=== PATIENT | female | born 1945 | race Caucasian/White ===

== ENCOUNTER 2016-12-09 07:35 | Observation (INO) | payer OTHER, BC ==
[~2016-12-09] VITALS: Ht 157.5 cm; Wt 150.6 kg
[~2016-12-09 07:35] MED LIST: AMLODIPINE BESYL5 MG PO; AVAPRO300 MG PO; BABY ASPIRIN81 M1 PO; BENAZEPRIL HCL40 MG; BENAZEPRIL HCL40 MG PO; CARVEDILOL25 MG PO; COUMADIN1 MG PO; DOCUSATE SODIU100 MG PO; DYNAPEN 250 MG250 MG PO; FLUOXETINE HCL20 MG PO; HYDROXYZINE HCL25 MG PO; LORAZEPAM1 MG PO; LOVENOX60 MG/0.6 SC; POLYETHYLENE GL17 GM PO; SANTYL30 GM TP; SIMVASTATIN40 MG PO; SPIRONOLACT/HC1 EACH PO; TRICOR48 MG PO; ULTRAM50 MG PO; VITAMIN D2000 UNI1 PO; WARFARIN SODIUM1 MG PO; WARFARIN SODIUM3 MG PO
[2016-12-09 11:24] LABS: CHLORIDE 103 mEq/L (99-109); POTASSIUM 5.4 mEq/L (3.7-5.4); SODIUM 135 mEq/L (136-147)
[2016-12-09 11:26] LABS: GLUCOSE 292 mg/dL (70-99)
[2016-12-09 11:28] LABS: ANION GAP 17 MEQ/L (2-14); TOTAL BILIRUBIN 0.7 mg/dL (0.0-1.0)
[2016-12-09 11:30] LABS: ALKALINE PHOSPHATASE 60 IU/L (3-129); GFR ESTIMATE (CALCULATED) 43 mL/min/
[2016-12-09 11:31] LABS: UREA NITROGEN (BUN) 22 mg/dL (9-23)
[2016-12-09 11:36] LABS: TROP-I INTERPRETATION NEGATIVE; TROPONIN-I < 0.01 ng/mL (0.0-0.30)
[2016-12-09 11:38] LABS: HEMATOCRIT 37.9 % (36.0-46.0); MCH 29.3 PG (29.0-34.0); MCHC 32.2 G/DL (30.0-36.0); MCV 91.1 FL (83-99); MEAN PLAT.VOLUME 10.9 uM^3 (9.5-12.4); PLATELET COUNT 216 K/uL (156-360); RBC DIS.WIDTH-CV 13.3 % (11.8-14.6); RBC DIS.WIDTH-SD 44.5 % (39-53); RED BLOOD COUNT 4.16 M/uL (3.80-5.20); WHITE BLOOD COUNT 16.9 K/uL (4.1-10.2)
[2016-12-09 11:44] LABS: INTER. NORMALIZED RATIO 3.3
[2016-12-09 11:47] LABS: PTT 34.7 SEC (25-37)
[2016-12-09 11:51] LABS: PROTHROMBIN TIME 37.5 SEC (10.2-12.9)
[2016-12-09] MEDS ORDERED: TRAMADOL HCL50 MG PO (14:45)
[2016-12-09] MEDS ORDERED: CYMBALTA60 MG PO (14:46)
[2016-12-09] MEDS ORDERED: COUMADIN1 MG PO (14:48)
[2016-12-09] MEDS ORDERED: COUMADIN3 MG PO (14:48)
[2016-12-09] MEDS ORDERED: DULCOLAX5 MG PO (14:49)
[2016-12-09] MEDS ORDERED: EXTRA STRENGTH500 M1 PO (14:49)
[2016-12-09 19:57] LABS: ADD MIUA? YES; BILIRUBIN NEGATIVE; BLOOD NEGATIVE; COLOR YELLOW ((YELLOW)); GLUCOSE (STRIP) NEGATIVE; KETONES NEGATIVE; LEUKOCYTES SMALL; NITRITE NEGATIVE; PROTEIN (STRIP) 30; UROBILINOGEN 0.2 MG/DL (0.2-1.0)
[2016-12-09 20:38] VITALS: BP 117/61
[2016-12-09 20:56] LABS: BACTERIA RARE /HPF; EPITHELIAL CELLS 1+ /HPF; MUCUS NONE SEEN /LPF; RED BLOOD CELLS NONE SEEN /HPF (0-5); WHITE BLOOD CELLS 0-5 /HPF (0-5)
[2016-12-09 20:57] LABS: CASTS NONE SEEN /LPF; CRYSTALS NONE SEEN
[2016-12-09 23:22] VITALS: BP 149/73
[2016-12-10 03:42] VITALS: BP 132/73
[2016-12-10 08:10] VITALS: BP 148/62
[2016-12-10 12:00] VITALS: BP 146/69
[2016-12-10 16:06] VITALS: BP 131/65
[2016-12-10 20:38] VITALS: BP 104/50
[2016-12-10 23:35] VITALS: BP 97/54
[2016-12-11 07:14] LABS: HEMATOCRIT 31.5 % (36.0-46.0); MCH 30.5 PG (29.0-34.0); MCHC 33.3 G/DL (30.0-36.0); MCV 91.6 FL (83-99); MEAN PLAT.VOLUME 11.3 uM^3 (9.5-12.4); PLATELET COUNT 160 K/uL (156-360); RBC DIS.WIDTH-CV 13.9 % (11.8-14.6); RBC DIS.WIDTH-SD 46.6 % (39-53); RED BLOOD COUNT 3.44 M/uL (3.80-5.20)
[2016-12-11 07:28] VITALS: BP 120/58
[2016-12-11 07:44] LABS: ANION GAP 10 MEQ/L (2-14); CHLORIDE 100 MEQ/L (99-109); GFR ESTIMATE (CALCULATED) 47 mL/min/; GLUCOSE 225 mg/dL (70-99); POTASSIUM 4.6 MEQ/L (3.7-5.4); SAMPLE HEMOLYSIS CHECK 0; SAMPLE ICTERIC CHECK 0; SAMPLE LIPEMIA CHECK 0; SODIUM 137 MEQ/L (136-147); UREA NITROGEN (BUN) 30 mg/dL (9-23)
[2016-12-11 11:08] VITALS: BP 123/57
[2016-12-11] MEDS ORDERED: NORCO 5/3251 TABLET PO (15:58)
[2016-12-11 16:50] VITALS: BP 137/73
== END 2016-12-11 18:01 | disposition home or self-care (01) ==
LOC: EME 07:35 → EDOF 13:45 → 3EAST 13:45 → EDOF 13:45 → ENRESERV 14:03 → EDOF 14:27 → ENRESERV 17:52 → 3EAST 20:19
PROVIDERS: Nurse Practitioner Family; Physician Assistant Surgical
DX: S36.892A Contusion of other intra-abdominal organs, initial encounter (principal); I48.91 Unspecified atrial fibrillation; I10 Essential (primary) hypertension; Z79.01 Long term (current) use of anticoagulants; Z86.711 Personal history of pulmonary embolism; W19.XXXA Unspecified fall, initial encounter; E66.9 Obesity, unspecified; Z68.44 Body mass index [BMI] 60.0-69.9, adult
CPT/HCPCS: 72100; 72131; 72132; 73522; 74177; 80048; 80053; 81003; 84484; 85027; 85610; 85730; 94799; 99281; 99285; G0378; G8978 GP CM; G8979 GP CL; G8987 GO CM; G8988 GO CJ; J2270; J2405; J7030; Q0177

== ENCOUNTER → 2017-06-24 | Outpatient (CLI) | payer OTHER, BC ==
[~2017-06-24] MED LIST changes: +COUMADIN3 MG PO; +CYMBALTA60 MG PO; +DULCOLAX5 MG PO; +EXTRA STRENGTH500 M1 PO; +NORCO 5/3251 TABLET PO; +TRAMADOL HCL50 MG PO
== END | disposition home or self-care (01) ==
LOC: RAD 12:57
DX: R16.0 Hepatomegaly, not elsewhere classified (principal)
CPT/HCPCS: 76705

== ENCOUNTER 2017-08-31 16:19 | Emergency (ER) | payer OTHER, BC ==
[~2017-08-31] VITALS: Ht 157.5 cm; Wt 147.0 kg
[2017-08-31 17:06] LABS: HEMATOCRIT 43.9 % (36.0-46.0); HEMOGLOBIN 15.1 G/DL (11.9-15.5); MCH 30.4 PG (29.0-34.0); MCHC 34.4 G/DL (30.0-36.0); MCV 88.5 FL (83-99); PLATELET COUNT 180 K/uL (156-360); RBC DIS.WIDTH-CV 13.5 % (11.8-14.6); RBC DIS.WIDTH-SD 43.8 % (39-53); RED BLOOD COUNT 4.96 M/uL (3.80-5.20); WHITE BLOOD COUNT 6.5 K/uL (4.1-10.2)
[2017-08-31 17:14] LABS: CHLORIDE 104 mEq/L (99-109); POTASSIUM 4.3 mEq/L (3.7-5.4); SODIUM 139 mEq/L (136-147)
[2017-08-31 17:15] LABS: INTER. NORMALIZED RATIO 3.4
[2017-08-31 17:16] LABS: GLUCOSE 144 mg/dL (70-99)
[2017-08-31 17:18] LABS: PTT 37.6 SEC (25-37)
[2017-08-31 17:20] LABS: GFR ESTIMATE (CALCULATED) 58 mL/min/
[2017-08-31 17:21] LABS: UREA NITROGEN (BUN) 20 mg/dL (9-23)
[2017-08-31] MEDS ORDERED: AUGMENTIN875 MG PO (18:16)
[2017-08-31 18:33] VITALS: BP 163/88
== END 2017-08-31 18:34 | disposition home or self-care (01) ==
LOC: EME 16:19
PROVIDERS: Physician Assistant
PROC: 09CKXZZ Extirpation of Matter from Nasal Mucosa and Soft Tissue, External Approach (ICD-10-PCS; principal; 2017-08-31)
DX: R04.0 Epistaxis (principal); T17.1XXA Foreign body in nostril, initial encounter; I48.91 Unspecified atrial fibrillation; Z79.01 Long term (current) use of anticoagulants; F32.9 Major depressive disorder, single episode, unspecified; E78.5 Hyperlipidemia, unspecified; F41.9 Anxiety disorder, unspecified; I10 Essential (primary) hypertension
CPT/HCPCS: 80048; 85027; 85610; 85730; 99281; 99283

== ENCOUNTER 2017-11-26 19:29 | Emergency (ER) | payer OTHER, BC ==
[~2017-11-26] VITALS: Ht 157.5 cm; Wt 138.9 kg
[~2017-11-26 19:29] MED LIST changes: +AUGMENTIN875 MG PO
[2017-11-26 20:17] LABS: HEMATOCRIT 42.8 % (36.0-46.0); HEMOGLOBIN 14.6 G/DL (11.9-15.5); MCHC 34.1 G/DL (30.0-36.0); MCV 88.1 FL (83-99); PLATELET COUNT 169 K/uL (156-360); RBC DIS.WIDTH-CV 13.7 % (11.8-14.6); RBC DIS.WIDTH-SD 44.2 % (39-53); RED BLOOD COUNT 4.86 M/uL (3.80-5.20); WHITE BLOOD COUNT 6.3 K/uL (4.1-10.2)
[2017-11-26 20:28] LABS: CHLORIDE 106 mEq/L (99-109); SODIUM 140 mEq/L (136-147)
[2017-11-26 20:30] LABS: ALBUMIN 4.4 g/dL (3.2-4.8); GLUCOSE 115 mg/dL (70-99)
[2017-11-26 20:33] LABS: TOTAL PROTEIN 7.6 g/dL (6.4-8.3)
[2017-11-26 20:34] LABS: CREATININE 1.1 mg/dL (0.6-1.3); GFR ESTIMATE (CALCULATED) 52 mL/min/
[2017-11-26 20:35] LABS: TOTAL BILIRUBIN 0.7 mg/dL (0.0-1.0); UREA NITROGEN (BUN) 18 mg/dL (9-23)
[2017-11-26 20:36] LABS: ALKALINE PHOSPHATASE 57 IU/L (3-129)
[2017-11-26 20:38] LABS: AST (GOT) 20 IU/L (2-34); DIRECT BILIRUBIN 0.3 mg/dL (0.0-0.3); TROP-I INTERPRETATION NEGATIVE; TROPONIN-I < 0.01 ng/mL (0.0-0.30)
[2017-11-26 20:39] LABS: ALT (GPT) 17 IU/L (3-49); LIPASE 13 U/L (1.0-51.0)
[2017-11-26 22:21] LABS: TROP-I INTERPRETATION NEGATIVE; TROPONIN-I < 0.01 ng/mL (0.0-0.30)
[2017-11-26 23:07] VITALS: BP 169/87
== END 2017-11-26 23:08 | disposition home or self-care (01) ==
LOC: EME 19:29
PROVIDERS: Emergency Medicine
DX: R07.89 Other chest pain (principal); I48.91 Unspecified atrial fibrillation; I10 Essential (primary) hypertension; E78.5 Hyperlipidemia, unspecified; F41.9 Anxiety disorder, unspecified; F32.9 Major depressive disorder, single episode, unspecified; Z86.711 Personal history of pulmonary embolism; Z79.01 Long term (current) use of anticoagulants; Z90.49 Acquired absence of other specified parts of digestive tract
CPT/HCPCS: 71046; 80048; 80076; 83690; 83880; 84484; 85027; 93005; 99281; 99284